=== PATIENT | female | born 1965 | race Caucasian/White ===

== ENCOUNTER 2018-09-12 18:26 | Inpatient (IN) ==
[2018-09-12] MEDS ORDERED: NS 1,000 ML IV ONE (19:46)
[2018-09-12] MEDS ORDERED: ZOFRAN IV ONE (20:23)
--- NOTE | 2018-09-12 20:28 | Diag Imaging Result Doc PS360 ---
EXAM: FLAT/UPRIGHT ABD/1 VIEW CHEST HISTORY: hemetemisis TECHNIQUE: Flat and upright with chest, three views COMPARISON: None. FINDINGS: The lungs are well expanded. No cardiomegaly. No pneumonia. No free air beneath the diaphragm. No organomegaly. No bowel obstruction. There are multiple pelvic phleboliths. IMPRESSION: No acute abnormality. Electronically signed by Lavell Bush 09/12/2018 8:25 PM
[2018-09-12 20:41] LABS: BILIRUBIN URINE NEGATIVE (NEGATIVE); BLOOD URINE NEGATIVE (NEGATIVE); CLARITY SL. CLOUDY (CLEAR); COLOR YELLOW; GLUCOSE URINE NEGATIVE (NEGATIVE); KETONE URINE 3+(Large) mg/dL (NEGATIVE); LEUKOCYTES URINE 1+ (NEGATIVE); NITRITE URINE NEGATIVE (NEGATIVE); PROTEIN URINE TRACE mg/dL (NEGATIVE); UROBILINOGEN URINE NORMAL
[2018-09-12] MEDS ORDERED: PROTONIX 80 MG in NS 80 ML IV ONE (20:43)
[2018-09-12 20:45] LABS: BASO# 0.03 X1000 (0.0-0.2); BASO% 0.2 % (0.0-0.8); EOS# 0.01 X1000 (0.0-0.7); EOS% 0.1 % (0.0-10.0); HEMATOCRIT 41.1 % (37.0-47.0); IMM GRAN# 0.04 X1000 (0.0-0.04); IMM GRAN% 0.3 % (0.0-0.5); LYMPH# 0.85 X1000 (1.2-3.4); LYMPH% 6.4 % (20.5-51.1); MCH 29.9 PG (27-31); MCHC 34.1 g/dL (33-37); MCV 87.8 FL (81-99); MONO# 0.67 X1000 (0.11-0.59); MPV 10.2 FL (7.4-10.4); NEUT# 11.75 X1000 (1.4-6.5); PLT 267 X1000 (130-400); RBC 4.68 XMIL (4.2-5.4); RDW 13.1 % (11.5-14.5); WBC 13.35 X1000 (4.8-10.8)
[2018-09-12 20:50] LABS: AGAP 14; ALBUMIN 4.4 g/dL (3.5-5.0); ALKALINE PHOSPHATASE 86 U/L (32-104); BUN 16 mg/dL (8-22); CALCIUM 9.1 mg/dL (8.8-10.2); CHLORIDE 102 mmol/L (98-107); COSMO 282; CREATININE 0.7 mg/dL (0.5-0.9); ESTIMATED GFR > 60; GLUCOSE 122 mg/dL (70-104); GOT 26 U/L (10-30); GPT 12 U/L (10-36); POTASSIUM 3.8 mmol/L (3.5-5.1); SODIUM 140 mmol/L (136-145); TCO2 24 mmol/L (25-35)
[2018-09-12 20:51] LABS: URINE SOURCE CLEAN CATCH
[2018-09-12 20:54] LABS: INR 0.94; PROTIME 13.1 Seconds (11.0-16.0)
[2018-09-12 20:54] LABS: URINE BACTERIA 1+ /HFP; URINE CAST NONE SEEN /LPF; URINE CRYSTAL NONE SEEN /HPF; URINE EPITHELIAL CELLS >10 /HPF (<10); URINE RBC <10 /HPF (<10); URINE YEAST NONE SEEN /HPF
--- NOTE | 2018-09-12 22:16 | PROVIDER DOCUMENTATION ---
This chart was entered by Sherron Doshi Scribe, acting as scribe for Kenan Tobin DO. HPI-Abdominal Pain/GI Problem - General Chief Complaint: Nausea/Vomiting Stated Complaint: THROWING UP BLOOD Time Seen by Provider: 09/12/18 19:26 Source: patient Allergies/Adverse Reactions: Patient Allergies Allergy/AdvReac Type Severity Reaction Status Date / Time aspirin AdvReac HIVES Verified 09/12/18 18:58 Home Medications: Home Medication List Medication Instructions Recorded Confirmed Last Taken Type Citalopram [Celexa] 09/12/18 Unknown History NK [No Home Medications] 09/12/18 09/12/18 Unknown History - History of Present Illness-ABD Nature of Presenting Problems: 53 yo f presents to ed w/cc starting this am vomiting blood on 3 diff occurrences. 1st instance at 1300 was food mixed w/blood and second time was dark blood and third time was bright blood. pt has had no dark BMs. pt is not on blood thinners, arthritis meds or taken advil. pt had an ulcer 1xas a child. Review of Systems - Adult - REVIEW OF SYSTEMS - ADULT Constitutional: reports: no symptoms reported Eyes: reports: no symptoms reported Ears, Nose, Mouth & Throat: reports: no symptoms reported Cardiovascular: reports: no symptoms reported Respiratory: reports: no symptoms reported Gastrointestinal: reports: see HPI, hematemesis (x3), vomiting. denies: constipation, diarrhea, difficulty swallowing, nausea Genitourinary: reports: no symptoms reported Musculoskeletal: reports: no symptoms reported Integumentary: reports: no symptoms reported Neurological: reports: no symptoms reported Psychiatric: reports: no symptoms reported Endocrine: reports: no symptoms reported Hematologic/Lymphatic: reports: no symptoms reported Allergic/Immunologic: reports: no symptoms reported All Other Systems: Reviewed and Negative Past History - Adult - PAST MEDICAL HISTORY-ADULT Review of Records: reports: Old Records Reviewed, Nursing Assessment Review, Medications Reviewed, Social history reviewed & non-contributory. Major Childhood Illnesses: reports: other (ulcer as a child) Cardiovascular: reports: denies history Respiratory: reports: denies history Gastrointestinal: reports: denies history Obstetrical/Gynecological: reports: denies history Genitourinary: reports: denies history Musculoskeletal: reports: denies history Neurological: reports: denies history Psychiatric: reports: anxiety Endocrine/Immune: reports: denies history Other Conditions: reports: denies history - PRIOR SURGERIES/PROCEDURES Surgical/Procedure History: reports: appendectomy, tonsillectomy, orthopedic ( extremity) (left ankle and hand) - IMMUNIZATION STATUS Childhood Immunizations: See Nurse Assessment Flu Vaccine: See Nurse Assessment - FAMILY HISTORY Family History: reviewed, not pertinent - SOCIAL HISTORY Smoking: non-smoker Substance Use: none/never Physical Exam-General - PHYSICAL EXAM-ADULT Initial Vital Signs Reviewed: Yes - CONSTITUTIONAL General Appearance: appears well, alert, mild distress - EYES Eyes: PERRL/EOMI - HEAD, EARS, NOSE, MOUTH & THROAT HENMT: normocephalic/atraumatic, moist mucous membranes, normal ENT inspection - NECK Neck: non-tender, full range of motion, supple - RESPIRATORY Respiratory: chest non-tender, lungs clear, normal breath sounds - CARDIOVASCULAR Cardiovascular: normal peripheral pulses, regular rate, rhythm - GASTROINTESTINAL (ABDOMEN) Abdominal Exam: normal bowel sounds, soft, tenderness (epigastric). negative: non tender, abnormal bowel sounds, distended, guarding - LYMPHATIC Lymphatic: no adenopathy - MUSCULOSKELETAL Back Exam: normal inspection, no CVA tenderness, no vertebral tenderness Extremity: normal range of motion, non-tender, normal inspection - SKIN Integumentary: normal color, normal turgor, warm/dry - NEUROLOGIC Neurologic: jewel hole rough opener II-XII nml as tested, grossly normal, no motor/sensory deficits - PSYCHIATRIC Psych/Mental Status: normal mood/affect, normal thought content, normal thought process, oriented x 3 Progress - PLAN OF CARE/RESULTS Progress/Plan/Lab Results: Vital Signs - 8 hr 09/12/18 18:53 Temperature 98 F Pulse Rate 90 Respiratory Rate 18 Blood Pressure 165/105 O2 Sat by Pulse Oximetry 97 Result Diagrams: 09/12/18 20:31 09/12/18 20:31 - CONSULTS/PCP/HOSPITALIST Notification #1 *Consult/PCP/Hospitalist*: Dr washington Time Discussed: 21:44 Reason/Comments: recomend transfer to [facility] #2 Consult: Keri Time Discussed: 22:15 Reason/Comments: ok to transfer to [facility] Departure - Departure Date of Disposition Decision: 09/12/18 Time of Disposition Decision: 22:16 DIAGNOSIS: GI bleed Disposition: ADMITTED INPATIENT 09 Certified Medical Emergency: Emergent Condition: Stable Referrals and Follow-Ups: Tj Washington MD [Primary Care Provider] - Work Excuses: Return to School/Parent Work - Critical Care Note This patient required my direct & personal management of CC.: No Attestation - Physician/ WALLY Attestation Patient care was provided by Advanced Practice Provider:: No The physician spent face to face time with patient:: Yes Advanced Practice Provider documentation review:: Supervising physician onsite and consulted in the evaluation and care of this patient. The physician did have a face to face encounter with the patient. This chart was documented by the indicated scribe, (Sherron Doshi Scribe) and accurately reflects the services I performed and decisions made by me, Kenan Tobin DO, as attested by the provider's signature.
[2018-09-13] MEDS ORDERED: SODIUM CHLORIDE 0.9% INJ SCH (01:15)
[2018-09-13] MEDS ORDERED: DILAUDID IV PRN (01:16)
[2018-09-13] MEDS: NS 1,000 ML IV SCH ×2 (01:30→16:03)
[2018-09-13] MEDS: PROTONIX IV SCH ×2 (01:31→14:18)
[2018-09-13] MEDS: ZOFRAN IV PRN ×2 (01:31→12:31)
--- NOTE | 2018-09-13 03:41 | HISTORY AND PHYSICAL ---
CHIEF COMPLAINT: Hematemesis for less than 1 day. HISTORY OF PRESENT ILLNESS: Ms. Nimisha Michele is a 53-year-old female who has a history of anxiety disorder as well as mild depression. She presents to the hospital because of coffee- ground vomitus which she notice prior to her presentation. She had 3 such episodes prior to coming to the hospital. She describes having upper abdominal pains and no rectal bleed. No past history of such occurrences. She does not take any nonsteroidal anti inflammatory drugs. The patient was seen and evaluated in the ER. Hematocrit was noted to be about of 41.1. INR of 0.94. The patient has now been admitted to the floor for further management. PAST MEDICAL HISTORY: Anxiety disorder, mild depression as well as obstructive sleep apnea. PAST SURGICAL HISTORY: She has had a tonsillectomy, appendectomy, hand as well as ankle surgery. ALLERGIES: She is allergic to aspirin. FAMILY HISTORY: Positive for COPD as well as throat cancer. SOCIAL HISTORY: No history of cigarette smoking, alcohol, or drug use. MEDICATIONS INCLUDE: She takes citalopram as well as Seroquel. REVIEW OF SYSTEMS: Constitutional: Question of fevers. [employer]: Has headaches. Eyes: No blurry vision. ENT: No sinus problems or hearing loss. Genitourinary: No dysuria. Psychiatric: She does have anxiety with depression. Musculoskeletal: No joint pains. Endocrinology: No diabetes or thyroid disease. Dermatology: No skin lesions. Hematology: No bleeding from other sites. Allergy/Immune: No symptoms suggestive of allergic rhinitis. PHYSICAL EXAMINATION: VITAL SIGNS ARE FOLLOWS: Temperature is 97.7 degrees, pulse 71, respirations 18, blood pressure is 145/88, oxygen saturation is 97%. HEENT: Atraumatic normocephalic. Extraocular movements intact. No significant oral lesions noted. NECK: No lymphadenopathy or thyromegaly. CARDIOVASCULAR: S1, S2. RESPIRATORY: Has evidence of good air entry bilaterally. ABDOMEN: Soft, with some epigastric tenderness. No masses felt. EXTREMITIES: No evidence of edema. CENTRAL NERVOUS SYSTEM: No obvious focal deficit noted. LABS: WBC is 13.35, hematocrit is 41.1, with a platelet count of 267. INR is 0.94. Sodium is 140, potassium 3.8, chloride is 102, bicarb 24, BUN is 16, creatinine 0.7, total bilirubin is 1.4. Urine is cloudy with urine microscopic WBC at 10-20. ASSESSMENT AND PLAN: This is a 53-year-old female who has presented to hospital because of coffee- ground vomitus which she noted prior to admission. She also has epigastric tenderness. 1. Gastrointestinal bleed. Maintain patient on proton pump inhibitor. Place n.p.o., except for clear liquids. Maintain her intravenous fluids. Obtain a CT scan of the abdomen and pelvis, also get a gastroenterology evaluation for GI endoscopic studies. We will follow up on her hemoglobin and hematocrit, transfuse packed red blood cells if needed. 2. Anxiety disorder. Continue appropriate medications for this condition. 3. Obstructive sleep apnea. The patient can use her CPAP machine if she does have one she uses at home. 4. Deep vein thrombosis prophylaxis. Sequential compression devises. cc: Jose E Saavedra MD MTDD
[2018-09-13 07:44] LABS: BASO# 0.03 X1000 (0.0-0.2); BASO% 0.4 % (0.0-0.8); EOS# 0.07 X1000 (0.0-0.7); HEMATOCRIT 39.9 % (37.0-47.0); HEMOGLOBIN 12.9 g/dL (12.0-16.0); IMM GRAN# 0.02 X1000 (0.0-0.04); IMM GRAN% 0.3 % (0.0-0.5); LYMPH# 1.47 X1000 (1.2-3.4); LYMPH% 21.9 % (20.5-51.1); MCH 29.5 PG (27-31); MCHC 32.3 g/dL (33-37); MCV 91.1 FL (81-99); MONO# 0.73 X1000 (0.11-0.59); MONO% 10.9 % (1.7-9.3); MPV 10.6 FL (7.4-10.4); NEUT# 4.38 X1000 (1.4-6.5); NEUT% 65.5 % (42.2-75.2); PLT 222 X1000 (130-400); RBC 4.38 XMIL (4.2-5.4); RDW 13.3 % (11.5-14.5)
[2018-09-13 08:07] LABS: AGAP 9; ALB/GLOB RATIO 1.6; ALBUMIN 3.8 g/dL (3.5-5.0); ALKALINE PHOSPHATASE 69 U/L (32-104); BUN 15 mg/dL (8-22); CALCIUM 8.3 mg/dL (8.8-10.2); CHLORIDE 107 mmol/L (98-107); COSMO 284; CREATININE 0.8 mg/dL (0.5-0.9); ESTIMATED GFR > 60; GLUCOSE 91 mg/dL (70-104); GOT 20 U/L (10-30); GPT 23 U/L (10-36); POTASSIUM 3.7 mmol/L (3.5-5.1); SODIUM 142 mmol/L (136-145); TCO2 26 mmol/L (25-35); TOTAL BILIRUBIN 1.66 mg/dL (0.20-1.00); TOTAL PROTEIN 6.2 g/dL (6.3-8.3)
[2018-09-13] MEDS ORDERED: DIPRIVAN 1% ONE (10:02)
[2018-09-13] MEDS ORDERED: ROBINUL ONE (10:04)
[2018-09-13] MEDS ORDERED: XYLOCAINE-MPF 2% ONE (10:04)
--- NOTE | 2018-09-13 10:50 | Diag Imaging Result Doc PS360 ---
EXAM: CT ABD/PELVIS W/IV CONT ONLY - 09/13/2018 HISTORY: gi bleed TECHNIQUE: CT abdomen/pelvis with intravenous contrast. No oral contrast administered per request of the referring provider. COMPARISON: None. FINDINGS: There are no substantial abnormalities of the liver, spleen, adrenal glands, or pancreas identified. There are no calcified gallstones or pericholecystic inflammation identified. The bilateral kidneys enhance homogeneously. There is no hydronephrosis. There is mild haziness of the periaortic retroperitoneum of questionable clinical significance. This may relate to mild retroperitoneal fibrosis. There are nonspecific small retroperitoneal lymph nodes. There are no substantial enlarged lymph nodes identified. There is no evidence of bowel obstruction. The appendix is surgically absent. There is mild colonic diverticulosis, primarily at the sigmoid. There is no evidence of diverticulitis. There is no free air, substantial free fluid, or abscess identified. Images of pelvis show no discrete mass or abnormal fluid collection. IMPRESSION: Mild colonic diverticulosis, primarily sigmoid. No evidence of diverticulitis. Possible mild retroperitoneal fibrosis. This exam was performed using automated exposure control, adjustment of mA or kV according to patient size, and/or use of iterative reconstruction technique. Electronically signed by Sergio Lin 09/13/2018 10:48 AM
--- NOTE | 2018-09-13 14:12 | GASTROENTEROLOGY CONSULTATION ---
DATE: 09/13/2018 REASON FOR CONSULTATION: Hematemesis. HISTORY OF PRESENT ILLNESS: Mrs. Nimisha Michele is a 53-year-old woman with a past medical history of anxiety disorder, depression, sleep apnea on CPAP, who presents with one-day history of hematemesis. The patient describes developing epigastric pain as mild discomfort yesterday morning, then around 1:00 p.m. she had vomited some food mixed with dark blood that progressively became coffee ground and then red. She does admit to having some retching associated with her emesis. She does not take any NSAIDs or aspirin. She describes having a similar episode of epigastric discomfort about a week ago without vomiting. No melena, hematochezia, shortness of breath, or chest pain. Mild dizziness. She has never had an EGD in the past. She describes having a colonoscopy that was unremarkable when she turned 50. PAST MEDICAL HISTORY: Anxiety disorder, depression, and sleep apnea. PAST SURGICAL HISTORY: Tonsillectomy, appendectomy, and ankle surgery. FAMILY HISTORY: COPD and throat cancer. No family history of GI diseases or malignancies. SOCIAL HISTORY: No smoking, alcohol, or drug use. MEDICATIONS: She is on citalopram and Seroquel. ALLERGIES: Aspirin. REVIEW OF SYSTEMS: As per HPI, otherwise 12-point review of systems was negative. LABORATORY DATA: White count 6.7 from 13.3 yesterday. Hemoglobin of 12.9 from 14.0. Platelets of 222,000. INR 0.94. Sodium of 143, potassium 3.7, chloride 107, bicarb 26, BUN 15, creatinine 0.8, glucose 91, total bilirubin 1.66. Otherwise, LFTs are normal. UA showed ketones and white blood cells. IMAGING: Chest x-ray and KUB were normal. CT of the abdomen and pelvis was done this morning. Read is pending. ASSESSMENT AND PLAN: Mrs. Nimisha Michele is a 53-year-old woman with no significant gastrointestinal history, who presents with one-day history of hematemesis and epigastric discomfort. The patient reports some mild abdominal pain about a week prior to onset of vomiting. She denies any blood thinner use. She does not take any NSAIDs. No family history gastrointestinal malignancies. Her hemoglobin has dropped from 14 to 12.9 with fluid resuscitation. She is currently on proton pump inhibitor intravenously twice a day. Her exam is notable for mild epigastric tenderness. She had some clear liquids at 9:00 this morning. Will make her n.p.o. right now and plan for diagnostic esophagogastroduodenoscopy later today. Further recommendations as per esophagogastroduodenoscopy results. Thank you for this consult. Will follow with you. Please call with any questions or concerns.
--- NOTE | 2018-09-13 15:40 | OPERATIVE NOTE ---
PROCEDURE DATE : 09/13/2018 PROCEDURE: Upper GI endoscopy. PROVIDER: Michael Brooks MD. INDICATIONS: Hematemesis. MEDICATIONS: General anesthesia. PROCEDURE: Prior to the procedure a history and physical was performed, and the patient's medications and allergies were reviewed. The patient's tolerance to previous anesthesia was also reviewed. The risks and benefits of the procedure and the sedation options and risks were discussed with the patient. All questions were answered and informed consent was obtained. After reviewing the risks and benefits, the patient was deemed in satisfactory condition to undergo the procedure. The endoscope was passed under direct visualization. Throughout the procedure, the patient's blood pressure, pulse, and oxygen saturations were monitored continuously. The endoscope was introduced into the mouth and advanced to the second portion of the duodenum. The upper GI endoscopy was performed without difficulty. The patient tolerated the procedure well. COMPLICATIONS: No immediate complications. ESTIMATED BLOOD LOSS: None. FINDINGS: There was a small Amee-Sears tear found in the distal esophagus at the GE junction, located 40 cm from the incisors. There was no blood seen throughout the upper GI tract. There was a small gastric erosion found in the antrum without any active bleeding. The duodenum was normal. Retroflexion in the stomach did not reveal any significant findings. IMPRESSION: Amee-Sears tear. Gastric erosion. RECOMMENDATIONS: Transition IV PPI to p.o. twice daily and continue for two to three months. Resume regular diet. The patient can be discharged from the hospital from a GI perspective. Avoid NSAIDs. Will sign off. Please call with any questions or concerns.
--- NOTE | 2018-09-13 18:01 | PROGRESS NOTE ---
DATE: 09/13/2018 Interval history. Ms. Michele was admitted overnight for 3 episodes of vomiting with hematemesis. She was hemodynamically stable. She was kept NPO, she underwent EGD and on EGD evaluation though official report is pending I was informed by the inlayer silver that she did have Amee-Sears tear otherwise no acute abnormality. SUBJECTIVE: Patient currently does not have any more nausea, vomiting. She does have epigastric tenderness however she is feeling better. Currently vitals temperature of 98 degrees, pulse 80, blood pressure 125/80, respiratory rate 16, saturating 96% room air. OBJECTIVE: Does not appear in any acute distress. Oral cavity is moist. Air entry bilaterally equal. No wheeze, rhonchi, crackles, S1, S2 normal, no murmur or gallop.Abdomen: Soft, tender in epigastric region, active bowel sounds. No rebound or rigidity. No lower extremity edema. Neurologic: Alert, oriented x3. CURRENT LAB: Suggest hemoglobin of 12.9, WBC of 6.7, platelet of 222,000, normal electrolytes and normal kidney function except elevated total bilirubin. ASSESSMENT AND PLAN: 1. Acute Upper gastrointestinal blood with acute hematemesis likely due to Amee-Sears tear. Continue proton pump inhibitors IV b.i.d., EGD just suggested Amee-Sears tear GI on board, no need of transfusion. She is hemodynamically stable. 2. Anxiety disorder. Continue patient's home citalopram and olanzapine. 3. Obstructive sleep apnea, patient can use her home CPAP machine if needed. 4. Deep vein thrombosis prophylaxis SCDs. 5. Disposition. I would like to keep patient inside the hospital to make sure she is able to eat by mouth and if she continues to better my plan is to discharge her home tomorrow. The etiology of her vomiting is unclear at the moment. Plan of care were discussed with her and her family at bedside, all of the questions have been answered. cc: Marc Ferrell MD [facility]
[2018-09-13] MEDS ORDERED: LEXAPRO PO SCH (21:00)
[2018-09-13] MEDS ORDERED: SEROQUEL PO SCH (21:00)
[2018-09-14] MEDS ORDERED: PROTONIX PO SCH (07:00)
[2018-09-14 08:04] VITALS: BP 111/8
--- NOTE | 2018-09-14 11:07 | GASTROENTEROLOGY PROGRESS NOTE ---
DATE: 09/14/2018 SUBJECTIVE: Resting in bed. She is feeling better. She denies any new complaints. She has denies any nausea, vomiting, vomiting blood. She is eating well. OBJECTIVE: Vital signs: Temperature 98.3, pulse 73, respiratory rate 14, blood pressure 110/66, saturating 94% on room air. Body weight of 197 pounds 5 ounces. BMI 35 kg/m2. General Appearance: Moderately built, moderately nourished, lying in bed, in no acute distress. HEENT: No pallor. No icterus. Neck: Supple. Abdomen: Soft, nontender. No guarding or rebound. Extremities: No cyanosis or clubbing. Neurologic: She is alert, awake, oriented x3. LABORATORY DATA: Hemoglobin and hematocrit 12.9 and 39.9, white count 6.7, platelet count 222,000. Sodium 140, potassium 3.7, chloride 107, bicarb 26, anion gap 9, BUN 15, creatinine 0.8, glucose 91, calcium 8.3, total bilirubin 1.6, AST 20, ALT 23, alkaline phosphatase 69, total protein 6.2, albumin 3.8. Urinalysis showing trace protein, 3+ ketones, 10-20 white cells. Urine culture showing no growth preliminary. DIAGNOSTIC STUDIES: CT of the abdomen and pelvis done on admission showed mild colonic diverticulosis, primarily sigmoid. No evidence of diverticulitis. Possible mild retroperitoneal fibrosis. IMPRESSION AND PLAN: 1. Gastrointestinal bleeding secondary to Amee-Sears tear. She will continue on proton pump inhibitors for now and she is doing well. Will keep the proton pump inhibitors for 90 days and then wean down to Zantac 150 mg p.o. b.i.d. as needed. 2. Obstructive sleep apnea. She uses home CPAP as needed. 3. Diverticulosis in the colon. She will avoid excessive corn, nuts, and seeds in the diet. She will increase fiber to 25 to 30 grams per day. 4. Deep venous thrombosis prophylaxis. Sequential compression devices. 5. Anxiety disorder. She is on citalopram and olanzapine. 6. She will continue on a regular diet now. She will follow up with Dr. Brooks as needed. Discussed the above with the patient and all questions were answered. Please call us with any further questions. cc: MD NOMI Metz
--- NOTE | 2018-09-15 14:47 | DISCHARGE SUMMARY ---
ADMISSION DATE: 09/12/2018 DISCHARGE DATE: 09/14/2018 DISCHARGE DIAGNOSES: 1. Acute upper gastrointestinal bleed. 2. Amee-Sears tear. OTHER DIAGNOSES: 1. History of anxiety disorder. 2. History of obstructive sleep apnea. DISCHARGE MEDICATIONS: 1. Escitalopram 20 mg at nighttime. 2. Quetiapine 50 mg at nighttime. 3. Pantoprazole 40 mg every 12 hours for 2 months. CONSULTATION DURING HOSPITALIZATION: Gastroenterology, Dr. Brooks. PROCEDURES DURING HOSPITALIZATION: EGD performed on September 13 had detected a small Amee- Sears tear in the distal esophagus at the gastroesophageal junction without any blood in throughout the upper GI tract. There was also a small gastric erosion in the antrum without any active bleeding with normal duodenum. VITAL SIGNS: At the time of discharge, temperature 98.3 degrees, pulse 73, respiratory rate 14, blood pressure 110/66, saturating 95% on room air. PHYSICAL EXAMINATION: General: Does not appear in any acute distress. HEENT: Oral cavity is moist. Lungs: Air entry bilaterally equal. No wheeze, rhonchi, crackles. Cardiovascular: S1, S2 normal. No murmur, rub or gallop. Abdomen: Soft, nontender. No lower extremity edema. LABORATORY DATA: At the time of discharge, WBC 6.7, hemoglobin 12.9, hematocrit 39.9, platelet of 222,000. Normal electrolytes with creatinine of 0.8. Total bilirubin of 1.6. HOSPITAL COURSE SUMMARY: Ms. Michele is a 53-year-old woman with past medical history of anxiety, who presented with sudden episode of 3 vomitings and she had noticed that the vomitus was mixed with bright red blood. She was concerned and she decided to come to the emergency room. She was started on intravenous Protonix and intravenous fluids. She was hemodynamically stable and hemoglobin was stable. She did not have any more hematemesis episode. Next day, she underwent EGD which had detected a Amee-Sears tear which was not bleeding. After EGD, she was continued on a regular diet with p.o. proton pump inhibitors which she tolerated well. As she was tolerating diet well without any trouble and she did not have any more hematemesis episode, she was discharged on Protonix p.o. b.i.d. DISCHARGE INSTRUCTIONS: She was advised to follow up with Gastroenterology. She was also advised to follow up with her regular doctor for her hyperbilirubinemia. Plan of care was discussed with her, she was in agreement with the plan. All of her questions have been answered. TIME SPENT: Less than 30 minutes of time was spent in preparing discharge summary of this patient. cc: Marc Ferrell MD
== END 2018-09-14 10:45 | disposition home or self-care (01) | DRG 370 ==
LOC: P.ED 18:26 → 3N 22:41 → SUATTDRO 22:41
PROVIDERS: ATTEND Internal Medicine
CPT/HCPCS: 74022; 74177; 80053; 81001; 82271; 85025; 85610; 85730; 87088; 96365; 96375; 99285; A9270; C9113; J2405; J7030; Q9967; S0164